=== PATIENT | female | born 1990 ===

== ENCOUNTER 2017-11-20 00:04 | Inpatient (IN) ==
[2017-11-20] MEDS ORDERED: ONDANSETRON 4 MG/2 ML VIAL IV PRN ×2 (00:31→14:15)
[2017-11-20] MEDS ORDERED: diphenhydrAMINE 50 MG/1 ML VIAL IV PRN (00:33)
[2017-11-20] MEDS ORDERED: NALOXONE 0.4 MG/ML VIAL IV PRN (00:33)
[2017-11-20] MEDS ORDERED: ePHEDrine 50 MG/ML AMP IV PRN (00:33)
[2017-11-20] MEDS ORDERED: FAMOTIDINE 20 MG/2 ML VIAL IV ONE ×2 (00:34→08:00)
[2017-11-20] MEDS ORDERED: CITRIC ACID/SODIUM CITRATE 30 ML UDCUP PO ONE (00:34)
[2017-11-20] MEDS ORDERED: OXYTOCIN/LR 20 UNIT/1,000 ML BAG IV SCH (01:00)
[2017-11-20] MEDS ORDERED: LACTATED RINGERS 1,000 ML IV SCH (01:00)
[2017-11-20] MEDS ORDERED: fentaNYL 2 MCG/ROPIV 0.2% EPID 100 ML EPIDURAL SCH (01:00)
[2017-11-20 01:59] LABS: Basophils % 0.4 % (0.0-0.8); Eosinophils # 0.2 10*3/uL (0.0-0.87); Eosinophils % 1.4 % (0.00-10.9); Hematocrit 37.3 VOL% (35.7-47.0); Immature Granulocytes % 0.6 %; Immature Granulocytes Absolute 0.07 #; Lymphocytes # 2.3 10*3/uL (1.4-4.0); Lymphocytes % 20.9 % (21.3-54.2); Mean Corpuscular HGB Conc 32.2 GM/DL (32-36); Mean Corpuscular Hemoglobin 29 PG (27-34); Mean Corpuscular Volume 91.4 FL (87-102); Mean Platelet Volume 11.1 FL (9.6-12.0); Monocytes # 0.7 10*3/uL (0.11-0.8); Neutrophils # 7.8 10*3/uL (1.4-7.4); Neutrophils % 70.7 % (38.7-73.9); Platelet Count 219 T/CUMM (130-400); Red Blood Count 4.08 MC/CUMM (3.8-5.5); Red Cell Distribution Width 13.7 % (9.3-17.3)
[2017-11-20] MEDS ORDERED: AMPICILLIN INJ 2,000 MG in SODIUM CHLORIDE 0.9% 100 ML IV ONE (05:17)
[2017-11-20] MEDS ORDERED: CITRIC ACID/SODIUM CITRATE 30 ML UDCUP ONE (07:43)
[2017-11-20] MEDS ORDERED: AMPICILLIN INJ 1,000 MG in SODIUM CHLORIDE 0.9% 100 ML IV SCH (10:00)
[2017-11-20] MEDS ORDERED: miSOPROStol 200 MCG TABLET ONE (12:40)
[2017-11-20] MEDS ORDERED: CARBOPROST TROMETHAMINE 250 MCG/ML AMP IM ONE (12:41)
[2017-11-20] MEDS ORDERED: METHYLERGONOVINE 0.2 MG/1 ML AMP ONE (12:41)
[2017-11-20] MEDS ORDERED: METHYLERGONOVINE 0.2 MG/1 ML AMP IM ONE (13:30)
[2017-11-20] MEDS ORDERED: DIPH/TET/ACEL PERT BOOSTER VACCINE 0.5 ML VIAL IM ONE (14:15)
[2017-11-20] MEDS ORDERED: HYDROCORTISONE 2.5% RECTAL CREAM 30 GM TUBE TOP PRN (14:15)
[2017-11-20] MEDS ORDERED: WITCH HAZEL PADS 100/JAR TOP PRN (14:15)
[2017-11-20] MEDS ORDERED: BENZOCAINE 20%/MENTHOL 0.5% SPRAY 56 GM CAN TOP PRN (14:15)
[2017-11-20] MEDS ORDERED: BISACODYL 10 MG SUPP RECTAL PRN (14:15)
[2017-11-20] MEDS ORDERED: ACETAMINOPHEN 325 MG TABLET PO PRN (14:15)
[2017-11-20] MEDS ORDERED: oxyCODONE/ACETAMINOPHEN 5-325 MG TABLET PO PRN (14:15)
[2017-11-20] MEDS ORDERED: LANOLIN 50% CREAM 0.3 OZ TUBE TOP PRN (14:15)
[2017-11-20] MEDS ORDERED: RHO(D) IMMUNE GLOBULIN 300 MCG SYRINGE IM ONE (14:15)
[2017-11-20] MEDS: IBUPROFEN 800 MG TABLET PO PRN (15:07)
[2017-11-20] MEDS: oxyCODONE/ACETAMINOPHEN 5-325 MG TABLET PO PRN (15:24)
[2017-11-20] MEDS: DOCUSATE SODIUM 100 MG CAPSULE PO SCH (20:22)
[2017-11-21] MEDS: IBUPROFEN 800 MG TABLET PO PRN ×2 (04:04→15:33)
[2017-11-21 05:03] LABS: Basophils % 0.2 % (0.0-0.8); Eosinophils # 0.2 10*3/uL (0.0-0.87); Eosinophils % 1.7 % (0.00-10.9); Hematocrit 30.2 VOL% (35.7-47.0); Hemoglobin 9.6 GM/DL (12.0-16.0); Immature Granulocytes % 0.3 %; Immature Granulocytes Absolute 0.04 #; Lymphocytes % 16.7 % (21.3-54.2); Mean Corpuscular HGB Conc 31.8 GM/DL (32-36); Mean Corpuscular Hemoglobin 29 PG (27-34); Mean Corpuscular Volume 91.8 FL (87-102); Mean Platelet Volume 11.3 FL (9.6-12.0); Monocytes # 0.8 10*3/uL (0.11-0.8); Monocytes % 6.5 % (1.7-12.7); Neutrophils # 9.1 10*3/uL (1.4-7.4); Neutrophils % 74.6 % (38.7-73.9); Platelet Count 177 T/CUMM (130-400); Red Blood Count 3.29 MC/CUMM (3.8-5.5); Red Cell Distribution Width 13.6 % (9.3-17.3); White Blood Count 12.2 T/CUMM (4-12)
[2017-11-21] MEDS: oxyCODONE/ACETAMINOPHEN 5-325 MG TABLET PO PRN ×3 (05:05→21:13)
[2017-11-21] MEDS ORDERED: INFLUENZA VIRUS VACCINE 0.5 ML SYRINGE IM ONE (09:00)
[2017-11-21] MEDS: DOCUSATE SODIUM 100 MG CAPSULE PO SCH ×2 (09:27→21:14)
[2017-11-21] MEDS: MULTIVITAMIN (PRENATAL) TABLET PO SCH (09:27)
[2017-11-22 07:19] VITALS: BP 110/57
[2017-11-22] MEDS: IBUPROFEN 800 MG TABLET PO PRN (07:46)
[2017-11-22] MEDS: oxyCODONE/ACETAMINOPHEN 5-325 MG TABLET PO PRN (07:49)
[2017-11-22] MEDS: DOCUSATE SODIUM 100 MG CAPSULE PO SCH (08:57)
[2017-11-22] MEDS: MULTIVITAMIN (PRENATAL) TABLET PO SCH (08:57)
== END 2017-11-22 11:25 | disposition home or self-care (01) | DRG 807 ==
LOC: N.LDOUT 00:04 → N.LD 00:16 → N.OB 20:16
PROVIDERS: ADMIT Obstetrics & Gynecology; ATTEND Obstetrics & Gynecology